=== PATIENT | female | born 2000 | race Caucasian/White ===

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

== ENCOUNTER 2019-01-06 01:43 | Emergency (ER) | payer OTHER ==
[~2019-01-06 01:43] MED LIST changes: +LEXA1TAB2 PO; +PRED20TA PO
[2019-01-06 02:35] LABS: HEMOGLOBIN 14.4 g/dl (12.0-15.5); MEAN CORPUSCULAR HEMOGLOBIN 27.6 pg (27.0-33.0); MEAN CORPUSCULAR HGB CONC 33.5 g/dl (32.0-36.5); MEAN CORPUSCULAR VOLUME 82.5 fl (80.0-96.0); PLATELET COUNT, AUTOMATED 230 10^3/uL (150-450); RED BLOOD COUNT 5.21 10^6/uL (4.00-5.40); WHITE BLOOD COUNT 7.7 10^3/uL (4.0-10.0)
[2019-01-06 02:44] LABS: ACETAMINOPHEN LEVEL < 2.0 UG/ML (10.0-30.0); ALT/SGPT 34 U/L (12-78); BILIRUBIN,DIRECT 0.1 MG/DL (0.0-0.2); BILIRUBIN,TOTAL 0.2 MG/DL (0.2-1.0); BLOOD UREA NITROGEN 9 MG/DL (7-18); CALCIUM LEVEL 8.1 MG/DL (8.5-10.1); CARBON DIOXIDE LEVEL 23 MEQ/L (21-32); CHLORIDE LEVEL 112 MEQ/L (98-107); CREATININE FOR GFR 0.76 MG/DL (0.55-1.30); ETHYL ALCOHOL (ETHANOL) 0.174 % (0.000-0.010); GLUCOSE, FASTING 101 MG/DL (70-100); POTASSIUM SERUM 3.5 MEQ/L (3.5-5.1); SALICYLATE LEVEL 3.2 MG/DL (5.0-30.0); SODIUM LEVEL 143 MEQ/L (136-145); TOTAL PROTEIN 7.2 GM/DL (6.4-8.2)
[2019-01-06 02:46] LABS: HCG, SERUM QUALITATIVE NEGATIVE (NEGATIVE)
[2019-01-06 02:55] LABS: AMPHETAMINES LEVEL URINE NEGATIVE (NEGATIVE); BARBITURATES URINE NEGATIVE (NEGATIVE); BENZODIAZEPINES URINE NEGATIVE (NEGATIVE); CANNABINOIDS URINE POSITIVE (NEGATIVE); COCAINE METABOLITE URINE NEGATIVE (NEGATIVE); METHADONE URINE NEGATIVE (NEGATIVE); OPIATES URINE NEGATIVE (NEGATIVE); PHENCYCLIDINE URINE NEGATIVE (NEGATIVE)
[2019-01-06 08:48] VITALS: BP 140/94
== END 2019-01-06 08:49 | disposition home or self-care (01) ==
LOC: M ED 01:43
DX: F32.9 Major depressive disorder, single episode, unspecified (principal); F10.120 Alcohol abuse with intoxication, uncomplicated; Z79.899 Other long term (current) drug therapy
CPT/HCPCS: 36415; 80048; 80076; 80307; 84443; 84703; 85027; 99284; G0480

== ENCOUNTER → 2019-08-04 | Outpatient (REF) | payer OTHER ==
[~2019-08-04] MED LIST changes: -FLUO20CA19; +FLUO20CA22; -OMEP40CA2 PO; +OMEP40CA97 PO; +QUET100T2; -QUET1TAB8; -VALA1TAB2 PO; +VALA1TAB5 PO; +ZONI100C17 PO; -ZONI100C2 PO
[2019-08-04 14:03] LABS: C REACTIVE PROTEIN QUANTITATIV < 0.30 MG/DL (0.00-0.30); RHEUMATOID FACTOR QUANT < 10.0 IU/ML (<15.0); TOTAL PROTEIN 6.7 GM/DL (6.4-8.2)
[2019-08-06 12:02] LABS: ALBUMIN % 61.9 % (55.8-66.1); ALPHA-1-GLOBULIN % 4.5 % (2.9-4.9); ALPHA-2-GLOBULINS % 12.1 % (7.1-11.8); BETA-1-GLOBULINS % 6.5 % (4.7-7.2); BETA-2-GLOBULINS % 4.1 % (3.2-6.5); GAMMA GLOBULIN % 10.9 % (11.1-18.8)
[2019-08-06 12:03] LABS: ALBUMIN 4.15 GM/DL (3.29-5.55); ALPHA-2-GLOBULINS 0.81 GM/DL (0.42-0.99); BETA-1-GLOBULINS 0.44 GM/DL (0.28-0.60); BETA-2-GLOBULINS 0.27 GM/DL (0.19-0.55); GAMMA GLOBULINS 0.73 GM/DL (0.65-1.58)
== END ==
LOC: M LABDRAW1 12:25
PROVIDERS: ATTEND Physician Assistant
DX: M25.551 Pain in right hip (principal)

== ENCOUNTER → 2019-08-27 | Outpatient (CLI) | payer OTHER ==
--- NOTE | 2019-08-27 14:04 | REP ---
TRIPLE PHASE BONE SCAN OF PELVIS AND HIPS: Following the intravenous administration of 22 mCi of technetium-99m MDP, patient's pelvis and hips are imaged in the flow phase in the anterior and posterior projections showing symmetrical blood flow. Immediate blood pool and 2.5 hour delayed images of the pelvis and hips are performed in multiple projections. There is no abnormal blood pooling. Delayed images show homogeneous diffuse radiotracer uptake throughout the visualized osseous structures. No focal scintigraphic abnormality is seen. IMPRESSION: Negative triple phase bone scan of the pelvis and hips. Electronically Signed by Matthew Chinchilla MD 08/27/2019 08:14 P
== END ==
LOC: M RAD 10:27
PROVIDERS: ATTEND Physician Assistant
DX: M25.551 Pain in right hip (principal)
CPT/HCPCS: 78315; A9503

== ENCOUNTER → 2019-09-04 | Outpatient (REF) | payer OTHER, MEDICAID ==
[2019-09-04 13:26] LABS: BASO % 0.5 % (0.0-1.0); EOS # 0.1 10^3/uL (0.0-0.5); HEMATOCRIT 44.9 % (36.0-47.0); HEMOGLOBIN 14.7 g/dl (12.0-15.5); MEAN CORPUSCULAR HEMOGLOBIN 27.5 pg (27.0-33.0); MEAN CORPUSCULAR HGB CONC 32.7 g/dl (32.0-36.5); MEAN CORPUSCULAR VOLUME 83.9 fl (80.0-96.0); MONO # 0.6 10^3/uL (0.0-0.8); MONO % 9.2 % (0.0-5.0); NEUTROPHILS # 3.4 10^3/uL (1.5-8.5); NEUTROPHILS % 56.1 % (36.0-66.0); PLATELET COUNT, AUTOMATED 214 10^3/uL (150-450); RED BLOOD COUNT 5.35 10^6/uL (4.00-5.40); WHITE BLOOD COUNT 6.1 10^3/uL (4.0-10.0)
[2019-09-04 13:27] LABS: ALT/SGPT 20 U/L (12-78); BILIRUBIN,TOTAL 0.5 MG/DL (0.2-1.0); BLOOD UREA NITROGEN 10 MG/DL (7-18); CALCIUM LEVEL 8.7 MG/DL (8.5-10.1); CARBON DIOXIDE LEVEL 25 MEQ/L (21-32); CHLORIDE LEVEL 107 MEQ/L (98-107); CHOLESTEROL LEVEL 162 MG/DL (<200); CREATININE FOR GFR 0.79 MG/DL (0.55-1.30); GLUCOSE, FASTING 89 MG/DL (70-100); POTASSIUM SERUM 4.3 MEQ/L (3.5-5.1); SODIUM LEVEL 140 MEQ/L (136-145); TRIGLYCERIDES LEVEL 69 MG/DL (<150)
[2019-09-04 13:28] LABS: ALBUMIN 3.9 GM/DL (3.2-5.2); CHOLESTEROL RISK RATIO 2.945 (<5); FREE T4 1.23 NG/DL (0.78-1.33); HDL CHOLESTEROL 55 MG/DL (>40); LDL CHOLESTEROL 93 MG/DL (<100); NON-HDL-C 107 MG/DL; THYROID STIMULATING HORMONE 0.407 uIU/ML (0.463-3.98); TOTAL PROTEIN 6.9 GM/DL (6.4-8.2)
[2019-09-04 14:02] LABS: HEMOGLOBIN A1c 5.5 %
== END ==
LOC: M LAB REF 12:14
PROVIDERS: ATTEND Nurse Practitioner Family
DX: F17.200 Nicotine dependence, unspecified, uncomplicated (principal); Z13.9 Encounter for screening, unspecified; M25.50 Pain in unspecified joint; R53.83 Other fatigue; F33.1 Major depressive disorder, recurrent, moderate

== ENCOUNTER → 2019-12-01 | Outpatient (REF) | payer OTHER, MEDICAID ==
[2019-12-01 13:16] LABS: FREE T4 1.02 NG/DL (0.78-1.33); THYROID STIMULATING HORMONE 0.332 uIU/ML (0.463-3.98)
== END ==
LOC: M LAB REF 12:12
PROVIDERS: ATTEND Nurse Practitioner Family
DX: Z13.9 Encounter for screening, unspecified (principal); R53.83 Other fatigue; F33.1 Major depressive disorder, recurrent, moderate

== ENCOUNTER → 2020-01-04 | Outpatient (CLI) | payer OTHER, MEDICAID ==
[2020-01-04 15:20] LABS: FREE T4 0.92 NG/DL (0.78-1.33); THYROID PEROXIDASE ANTIBODY < 28.0 U/ML (<60.0)
== END ==
LOC: M PLALAB 11:46
PROVIDERS: ATTEND Nurse Practitioner Family
DX: E05.00 Thyrotoxicosis with diffuse goiter without thyrotoxic crisis or storm (principal)

== ENCOUNTER → 2020-01-21 | Outpatient (CLI) | payer OTHER ==
[~2020-01-21] MED LIST changes: +PROHANCE 279.3MG/ML 15ML VIAL As Ordered ONE
--- NOTE | 2020-03-11 13:01 | REP ---
MRI OF THE PELVIS WITH AND WITHOUT CONTRAST: HISTORY: Sacroiliitis. Hip pain. TECHNIQUE: Multiple sequences obtained in the axial, coronal and sagittal planes prior to and following the intravenous administration of 14 ml of ProHance. FINDINGS: The visualized osseous structures demonstrates normal bone marrow signal. There is no abnormal signal or enhancement. There is no evidence of sacroiliitis. No adenopathy is seen in the pelvis. The ovaries are normal in appearance. There are normal sized ovarian follicles bilaterally. Very mild free fluid in the pelvis is likely physiologic. The uterus is deviated to the right of midline. The uterus is normal in size. Endometrial thickness is normal. Maximum thickness is approximately 2-3 mm. There is no other evidence of pelvic mass. IMPRESSION: Essentially negative MRI of the pelvis, as discussed above. Very mild free fluid is likely physiologic. No mass or adenopathy. No MR evidence of sacroiliitis. MTDD
== END ==
LOC: M RAD 15:15
PROVIDERS: ATTEND Internal Medicine Rheumatology
DX: M46.1 Sacroiliitis, not elsewhere classified (principal)
CPT/HCPCS: 72197; A9576

== ENCOUNTER → 2020-10-17 | Outpatient (CLI) | payer OTHER ==
[~2020-10-17] MED LIST changes: -PROHANCE 279.3MG/ML 15ML VIAL As Ordered ONE
== END ==
LOC: M WHC 14:45
PROVIDERS: ATTEND Obstetrics & Gynecology
DX: N92.6 Irregular menstruation, unspecified (principal)

== ENCOUNTER 2022-04-30 16:25 | Emergency (ER) | payer OTHER ==
[~2022-04-30] VITALS: Ht 162.6 cm; Wt 99.2 kg
[~2022-04-30 16:25] MED LIST changes: +OMEP40CA4 PO; -OMEP40CA97 PO; -ZONI100C17 PO; +ZONI100C67 PO
[2022-04-30] MEDS ORDERED: PRAZ5CAP PO (16:55)
[2022-04-30] MEDS ORDERED: HYDR50TA70 PO (16:55)
[2022-04-30 20:44] VITALS: BP 175/91
== END 2022-04-30 20:45 | disposition home or self-care (01) ==
LOC: M ED 16:25
DX: S93.601A Unspecified sprain of right foot, initial encounter (principal); X58.XXXA Exposure to other specified factors, initial encounter; Y92.009 Unspecified place in unspecified non-institutional (private) residence as the place of occurrence of the external cause; Y93.K1 Activity, walking an animal; Y99.8 Other external cause status; R93.6 Abnormal findings on diagnostic imaging of limbs; F41.9 Anxiety disorder, unspecified; F31.9 Bipolar disorder, unspecified; F90.9 Attention-deficit hyperactivity disorder, unspecified type; F43.10 Post-traumatic stress disorder, unspecified; F17.200 Nicotine dependence, unspecified, uncomplicated

== ENCOUNTER → 2023-01-03 | Outpatient (CLI) | payer OTHER ==
[~2023-01-03] MED LIST changes: +HYDR50TA70 PO; +PRAZ5CAP PO
== END ==
LOC: M RAD 12:32
PROVIDERS: ATTEND Nurse Practitioner Family
DX: M54.6 Pain in thoracic spine (principal)

== ENCOUNTER → 2023-01-09 | Outpatient (REF) | payer OTHER ==
[2023-01-09 18:10] LABS: BASO % 0.5 % (0.0-1.0); EOS # 0.1 10^3/uL (0.0-0.5); HEMATOCRIT 45.8 % (36.0-47.0); LYMPH # 2.1 10^3/uL (1.5-5.0); LYMPH % 24.6 % (24.0-44.0); MEAN CORPUSCULAR HEMOGLOBIN 28.6 pg (27.0-33.0); MEAN CORPUSCULAR HGB CONC 32.8 g/dl (32.0-36.5); MEAN CORPUSCULAR VOLUME 87.2 fl (80.0-96.0); MONO # 0.5 10^3/uL (0.0-0.8); MONO % 5.5 % (2.0-8.0); NEUTROPHILS # 5.7 10^3/uL (1.5-8.5); NEUTROPHILS % 68.2 % (36.0-66.0); PLATELET COUNT, AUTOMATED 240 10^3/uL (150-450); RED BLOOD COUNT 5.25 10^6/uL (4.00-5.40); WHITE BLOOD COUNT 8.3 10^3/uL (4.0-10.0)
[2023-01-09 18:34] LABS: THYROID STIMULATING HORMONE 0.775 uIU/ML (0.55-4.78)
[2023-01-09 18:35] LABS: ALKALINE PHOSPHATASE 91 U/L (46-116); ALT/SGPT 13 U/L (7.0-40); AST/SGOT 9 U/L (<34); BILIRUBIN,TOTAL 0.3 MG/DL (0.3-1.2); BLOOD UREA NITROGEN 9 MG/DL (9-23); CALCIUM LEVEL 8.8 MG/DL (8.5-10.1); CARBON DIOXIDE LEVEL 20 MMOL/L (20-31); CHLORIDE LEVEL 110 MMOL/L (98-107); CHOLESTEROL LEVEL 185 MG/DL (<200); CHOLESTEROL RISK RATIO 4.89 (<5); CREATININE FOR GFR 0.68 MG/DL (0.55-1.30); GLOMERULAR FILTRATION RATE > 60.0 (>60); GLUCOSE, FASTING 89 MG/DL (60-100); HDL CHOLESTEROL 37.8 MG/DL (>40); LDL CHOLESTEROL 126.2 MG/DL (<100); NON-HDL-C 147.2 MG/DL; POTASSIUM SERUM 4.2 MMOL/L (3.5-5.1); SODIUM LEVEL 143 MMOL/L (136-145); TOTAL PROTEIN 6.8 G/DL (5.7-8.2); TRIGLYCERIDES LEVEL 105 MG/DL (<150)
== END ==
LOC: M LAB REF 17:44
PROVIDERS: ATTEND Nurse Practitioner Family
DX: Z11.9 Encounter for screening for infectious and parasitic diseases, unspecified (principal); E66.9 Obesity, unspecified; E55.9 Vitamin D deficiency, unspecified; R53.83 Other fatigue; Z68.34 Body mass index [BMI] 34.0-34.9, adult

== ENCOUNTER → 2023-09-20 | Outpatient (REF) | payer OTHER ==
[2023-09-20 16:36] LABS: HEMATOCRIT 49.2 % (36.0-47.0); HEMOGLOBIN 16.5 g/dl (12.0-15.5); MEAN CORPUSCULAR HEMOGLOBIN 29.4 pg (27.0-33.0); MEAN CORPUSCULAR HGB CONC 33.5 g/dl (32.0-36.5); MEAN CORPUSCULAR VOLUME 87.7 fl (80.0-96.0); NEUTROPHILS % 67.4 % (36.0-66.0); PLATELET COUNT, AUTOMATED 240 10^3/uL (150-450); RED BLOOD COUNT 5.61 10^6/uL (4.00-5.40); WHITE BLOOD COUNT 8.9 10^3/uL (4.0-10.0)
[2023-09-20 16:37] LABS: BASO % 0.5 % (0.0-1.0); EOS # 0.1 10^3/uL (0.0-0.5); EOS % 1.1 % (0.0-3.0); LYMPH # 2.2 10^3/uL (1.5-5.0); LYMPH % 24.3 % (24.0-44.0); MONO # 0.6 10^3/uL (0.0-0.8); MONO % 6.6 % (2.0-8.0)
[2023-09-20 16:58] LABS: PERCENT SATURATION 30.3 % (13.2-45.0)
[2023-09-20 16:59] LABS: TOTAL 25(OH) VITAMIN D 29.4 NG/ML (20.0-100.0)
== END ==
LOC: M LAB REF 16:17
PROVIDERS: ATTEND Nurse Practitioner Family
DX: E55.9 Vitamin D deficiency, unspecified (principal); Z87.42 Personal history of other diseases of the female genital tract

== ENCOUNTER → 2024-01-16 | Outpatient (CLI) | payer OTHER ==
[~2024-01-16] MED LIST changes: +FLUO-365; -FLUO20CA22
[2024-01-16 10:56] LABS: HEPATITIS B SURFACE ANTIGEN NEGATIVE (NEGATIVE)
[2024-01-16 11:08] LABS: HIV 1&2 SCREEN NEGATIVE (NEGATIVE)
[2024-01-16 11:17] LABS: HEPATITIS B CORE ANTIBODY IGM NEGATIVE (NEGATIVE); HEPATITIS C VIRUS ABY INDEX < 0.02 INDEX (<0.8)
[2024-01-16 15:30] LABS: Trichomonas vaginalis (AMP) NOT DETECTED (NEGATIVE)
[2024-01-16 15:54] LABS: GC DNA AMPLIFICATION NEGATIVE (NEGATIVE)
== END ==
LOC: M PLALAB 07:47
PROVIDERS: ATTEND Nurse Practitioner Family
DX: Z11.3 Encounter for screening for infections with a predominantly sexual mode of transmission (principal)

== ENCOUNTER → 2024-03-27 | Outpatient (CLI) | payer OTHER | LOC: M RAD 13:10 | PROVIDERS: ATTEND Psychiatry & Neurology Neurology | DX: R51.9 Headache, unspecified (principal) ==

== ENCOUNTER → 2024-04-07 | Outpatient (CLI) | payer OTHER ==
[~2024-04-07] MED LIST changes: +PROHANCE 279.3MG/ML 5ML VIAL As Ordered ONE
== END ==
LOC: M RAD 07:42
PROVIDERS: ATTEND Student in an Organized Health Care Education/Training Program
DX: M25.561 Pain in right knee (principal)
CPT/HCPCS: 73723; A9576

== ENCOUNTER → 2025-04-01 | Outpatient (CLI) | payer OTHER ==
[~2025-04-01] MED LIST changes: +LAMO-18 PO; -LAMO25TA4 PO; -PROHANCE 279.3MG/ML 5ML VIAL As Ordered ONE
== END ==
LOC: M RAD 07:35
PROVIDERS: ATTEND Psychiatry & Neurology Neurology
DX: S09.90XD Unspecified injury of head, subsequent encounter (principal); R41.3 Other amnesia; J34.1 Cyst and mucocele of nose and nasal sinus

== ENCOUNTER → 2025-04-03 | Outpatient (REF) | payer OTHER | LOC: M LAB REF 15:37 | PROVIDERS: ATTEND Physician Assistant | DX: B34.9 Viral infection, unspecified (principal) ==

== ENCOUNTER → 2025-04-22 | Outpatient (REF) | payer OTHER ==
[2025-04-22 14:37] LABS: PLATELET COUNT, AUTOMATED 254 10^3/uL (150-450)
[2025-04-22 14:40] LABS: CALCIUM LEVEL 8.2 MG/DL (8.5-10.1); CARBON DIOXIDE LEVEL 25 MMOL/L (20-31); CHLORIDE LEVEL 110 MMOL/L (98-107); CHOLESTEROL LEVEL 118 MG/DL (<200); CHOLESTEROL RISK RATIO 3.74 (<5); CREATININE FOR GFR 0.64 MG/DL (0.55-1.30); GLOMERULAR FILTRATION RATE > 90.0 (>60); IRON (FE) 88 UG/DL (50-170); LDL CHOLESTEROL 66.3 MG/DL (<100); NON-HDL-C 86.5 MG/DL; POTASSIUM SERUM 4.3 MMOL/L (3.5-5.1); SODIUM LEVEL 143 MMOL/L (136-145); TRIGLYCERIDES LEVEL 101 MG/DL (<150)
[2025-04-22 14:42] LABS: ESTIMATED AVERAGE GLUCOSE 97.0 MG/DL (60-110)
[2025-04-22 14:54] LABS: INR 0.83
[2025-04-22 15:34] LABS: ATYPICAL LYMPH 16 % (0-5); EOSINOPHILS 1 % (0-3); LYMPHOCYTES 17 % (16-44); MONOCYTES 5 % (0-5); NEUTROPHILS 61 % (28-66); PLATELET ESTIMATE NORMAL (NORMAL)
== END ==
LOC: M LAB REF 14:20
PROVIDERS: ATTEND Nurse Practitioner Family
DX: Z68.34 Body mass index [BMI] 34.0-34.9, adult (principal); E66.9 Obesity, unspecified; R23.3 Spontaneous ecchymoses